=== PATIENT | female | born 1965 | race Caucasian/White ===

== ENCOUNTER 2024-01-05 21:09 | Emergency (ER) | payer SELFPAY ==
[2024-01-05 21:12] VITALS: BP 135/81; PULSE 64; RESP 14; TEMP 36.7; O2SAT 100; BMI 21.1
[2024-01-05 21:16] VITALS: BP 115/85; PULSE 56; O2SAT 97
--- NOTE | 2024-01-05 21:19 | W.ED.BACK ---
HPI - Back Pain/Injury General: Chief Complaint: Back Pain/Injury Stated Complaint: Gen Weakness and pain Time Seen by Provider: 01/05/24 21:13 History of Present Illness: A 58-year-old female comes in today with complaints of low back pain. Patient reports she has a history of restless legs, rheumatoid arthritis, chronic back pain. Patient has been incarcerated at the [facility] for 17 days. Patient is to go to court tomorrow. Patient appears nontoxic. Respirations are even. Patient been without her medication due to the medications being in a camper that was allegedly reposted and her medicine return to [place] with the camper. Related Data Previous Rx's Medication Instructions Recorded naproxen 500 mg tablet 500 mg PO BID #20 tabs 01/05/24 Allergies Allergy/AdvReac Type Severity Reaction Status Date / Time house dust mite Allergy Mild Unknown Verified 06/11/23 12:01 Review of Systems General: Reports: 10 or more systems reviewed and unremarkable except in HPI and below Musc: Reports: back pain [facility] ED PFSH: Medical History (Updated 01/05/24 @ 21:26 by EDMAR Carrasco) Other stimulant dependence, uncomplicated Psychiatric care Physical Exam Const: COMMON NORMALS: alert HENMT: COMMON NORMALS: normocephalic HEAD & SCALP: normocephalic Neck/C-Spine: COMMON NORMALS: full ROM Resp: COMMON NORMALS: normal respiratory effort Cardio: COMMON NORMALS: regular rate RATE: regular rate GI: COMMON NORMALS: Soft to palpation and non-tender PALPATION: Yes Soft to palpation Back/Pelvis: LUMBAR SPINE/LOWER BACK: No lumbar spinal tenderness and Yes paraspinal muscle tenderness Lumbar paraspinal muscle tenderness: left Extremity: COMMON NORMALS: normal to inspection Neuro: SENSORIUM/ORIENTATION: Yes alert Skin: COMMON NORMALS: turgor normal GENERAL SKIN EXAM: turgor normal Course Vital Signs: Vital signs: Vital Signs Temperature 98.1 F 01/05/24 21:12 Pulse Rate 64 01/05/24 21:12 Respiratory Rate 14 01/05/24 21:12 Blood Pressure 135/81 01/05/24 21:12 Pulse Oximetry 100 01/05/24 21:12 MDM - Back Pain/Injury Medical Decision Making Patient comes in today with complaints of back pain. On exam patient appears nontoxic. Respirations are even. Muscle tenderness noted to the left lower paraspinous muscles of the lumbar spine. Abdomen soft normal active bowel sounds. Vital signs are normal. Differential diagnosis includes but not limited to lumbar strain, intervertebral disc disease, facet arthritis, acute on chronic back pain. No signs of severe illness or injury is noted. Reviewed exam with patient with recommendation for treatment for her back pain with naproxen. Patient was given a dose of Toradol and orphenadrine in the emergency room. Patient does have a court date tomorrow so maybe she can get out and reestablish care with her primary care for further treatment of her chronic conditions. No radiology studies performed this visit Discharge Plan Discharge Patient Disposition: Home Clinical Impression: Low back pain Qualifiers: Chronicity: unspecified Back pain laterality: left Sciatica presence: without sciatica Qualified Code(s): M54.50 - Low back pain, unspecified Condition: Stable Prescriptions: New naproxen 500 mg tablet 500 mg PO BID Qty: 20 0RF Discharge Orders: Discharge ED (Routine); Ordered 01/05/24 Ordered By: Jarrod Manriquez Discharge Diet: Usual diet Discharge Activity: Increase activity as tolerated Patient Instructions: Back Pain (ED) Activity Restrictions/Additional Instructions: Take medication as directed. Use naproxen 500 mg twice a day for pain. Use acetaminophen for further pain relief. Follow-up with primary care for further concerns. Return to ED for new concerns. Coding Level of Care Code ED Human[employer] Division Chair for Jose Angel Siegel
[2024-01-05] MEDS: ketorolac 30 mg/mL INJ IM (21:33)
[2024-01-05] MEDS: orphenadrine 30 mg/mL Inj 2 mL 60 MG IM (21:33)
[2024-01-05 22:17] VITALS: BP 153/93; PULSE 59; O2SAT 100
== END 2024-01-05 22:28 | disposition home or self-care (01) ==
PROVIDERS: Emergency Provider Nurse Practitioner Family
DX: M54.50 Low back pain, unspecified (principal)
CPT/HCPCS: 96372; 99284; J1885; J2360